=== PATIENT | female | born 1970 | race Caucasian/White ===

== ENCOUNTER → 2016-10-21 08:04 | Day surgery (SDC) | payer OTHER ==
--- NOTE | 2016-09-23 09:49 | HP ---
PREOPERATIVE HISTORY AND PHYSICAL: DATE OF SURGERY/ADMISSION: 10/21/16 PROCEDURE: Right wrist carpal tunnel release. CHIEF COMPLAINT: Right hand numbness and tingling. HISTORY OF PRESENT ILLNESS: This is a 46-year-old female who complains of numbness and tingling in her bilateral hands, worse on the right than on the left. She has had symptoms for a couple of years now but they have recently gotten worse. She has tried wrist bracing in the past with minimal improvement. She had a nerve conduction study EMG performed by Dr. Ricci, which showed moderate carpal tunnel syndrome on the right and ougc-[id number]-myaorpmf carpal tunnel syndrome on the left. The patient is interested in a more definitive resolution of her symptoms at this time and would like to proceed with a right carpal tunnel release. PAST MEDICAL HISTORY: 1. Migraine headaches. 2. GERD. PAST SURGICAL HISTORY: 1. x3. 2. Ectopic . 3. Right leg lower leg fracture. 4. Surgery for bilateral bunionectomy from her feet. 5. Tubal ligation. 6. Left foot Flores's neurectomy. MEDICATIONS: 1. Amitriptyline HCl. 2. Imitrex 50 mg. 3. Omeprazole 20 mg. 4. Trazodone HCl 100 mg q.h.s. 5. Zofran. ALLERGIES: No known drug allergies. FAMILY MEDICAL HISTORY: Noncontributory. SOCIAL HISTORY: The patient is employed at the [employer] in [place]. 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 She is a smoker. She smokes about a half pack a day and has done so for the past 15 to 20 years. She denies illicit drug use and denies alcohol use. REVIEW OF SYSTEMS: General: Negative for fevers, chills, or night sweats. No known anesthesia problems. HEENT: Positive for migraine headaches. Negative for lightheadedness or syncopal episodes. Integumentary: Negative for abrasions, lesions, or open wounds. Cardiothoracic: Negative for chest pain, palpitations, or edema. Negative for hypertension. Pulmonary: Negative for shortness of breath with exertion, chronic cough, COPD. GI: Positive for nausea associated with her migraine headaches. Negative for diarrhea or constipation. Positive for GERD. : Positive for history of UTIs. Negative for nocturia, urinary frequency, urgency or kidney problems. Musculoskeletal: Positive for current complaint. Negative for chronic or intermittent back pain. Neurological: Negative for paresthesias, numbness, history of seizure, stroke , or epilepsy. Endocrine: Negative for diabetes or thyroid issues. Hematologic : Negative for easy bruising, anemia, excessive bleeding or history of DVT. Infectious Disease: Negative for history of MRSA, hepatitis C, HIV. PHYSICAL EXAMINATION GENERAL: Well-developed, well-nourished 46-year-old female, in no acute distress. VITAL SIGNS: Height 5 feet 3 inches, weight 135 pounds. Blood pressure 100/78 , pulse rate 70. HEENT: Normocephalic, atraumatic. Pupils are equal, round, and reactive to light and accommodation. Extraocular movements are intact. NECK: Supple. No palpable lymph nodes. Throat is clear. PULMONARY: Lungs are clear to auscultation bilaterally. No wheezes, rales, or rhonchi. CARDIOTHORACIC: Regular rate and rhythm. S1, S2. No murmurs, rubs, or gallops. No edema. ABDOMEN: Positive bowel sounds. Soft, nontender. NEUROLOGIC: Alert and oriented x3. Cranial nerves II through XII are intact. MUSCULOSKELETAL: On exam of the right wrist, she has no thenar wasting. Mild weakness with thumb abduction. She has a positive Tinel sign over the median nerve at the wrist and a positive Phalen's test. She has good range of motion in her fingers and wrist. Sensation is intact to light touch. DIAGNOSTIC STUDIES/LAB DATA: EMG nerve conduction study test shows moderate entrapment of the median nerve at the right wrist. IMPRESSION: Right carpal tunnel syndrome. PLAN: The patient is scheduled to undergo right wrist carpal tunnel release with Dr. Lee on 10/21/16. She will return to the office 10 to 14 days postop for followup and suture removal. A prescription for Ultracet was e-scribed to the patient's pharmacy for postoperative pain management. RUDDY CROW [id number]/[facility] #: [id number] MTDBrandie
[~2016-10-21 08:04] MED LIST: Buffered Lidocaine 1% SYR 3ML* 3 ML/SYR SYRINGE INTRADERM ONE; Buffered Lidocaine 1% SYR 3ML* 3 ML/SYR SYRINGE ONE; DiMENhydriNATE IV* 50 MG/ML VIAL IV PUSH PRN; Famotidine IV* 10 MG/ML 2 ML (20 mg) IV ONE; Famotidine IV* 10 MG/ML 2 ML (20 mg) ONE; Ketorolac INJ* 30 MG/ML 1 ML VIAL ONE; Lidocaine 1% INJ* 10 MG/ML 30 ML SDV ONE; Lidocaine 2% PF * 5 ML VIAL ONE; Midazolam* 1 MG/ML 5 ML VIAL (5 MG) ONE; Ondansetron INJ* 2 MG/ML VIAL ONE; Propofol* 10 MG/ML 20 ML BTL IV PUSH ONE; fentaNYL* 50 MCG/ML 2 ML VIAL (100 MCG VIAL) ONE; oxyCODONE/Acetamin 5/325 MG* TAB PO PRN
[2016-10-21 09:52] VITALS: BP 126/82
--- NOTE | 2016-10-21 22:40 | OP ---
DATE OF OPERATION: 10/21/16 [facility] DATE OF : 66 SURGEON: Dr. Lee BAND NAILER: RUDDY Saba ANESTHESIOLOGIST: Ca Robles MD ANESTHESIA: Local MAC. PRE-OP DIAGNOSIS: Right carpal tunnel syndrome. POST-OP DIAGNOSIS: Right carpal tunnel syndrome. OPERATIVE PROCEDURE: Right carpal tunnel release. ESTIMATED BLOOD LOSS: Zero. TOURNIQUET TIME: 5 minutes. INDICATION FOR PROCEDURE: Carmen is 46-year-old female with numbness and tingling in the median nerve distribution of her right hand. She presents for right carpal tunnel release. DESCRIPTION OF PROCEDURE: The patient was brought to the operating room, was given a sedation anesthetic, and a local infiltration with 10 cc of 1% plain lidocaine in the palm of her right hand. The skin of her right hand and forearm was prepped and draped in the usual sterile fashion. The hand and forearm were exsanguinated and the tourniquet elevated to 250 mmHg. A longitudinal incision was made in the palm in line with the ring finger. We dissected through the subcutaneous tissue down to the transverse carpal ligament. The ligament was divided sharply with a knife and then more proximally with the scissors. The nerve was dissected free from the surrounding tissue, and there was an area of moderate compression at the mid portion of the ligament. The wound was copiously irrigated with saline and then the skin edges reapproximated with 4-0 nylon suture. The wound was dressed with Xeroform, 4x4, Webril, and an Hakeem wrap. The patient tolerated the procedure well and was brought to the recovery room in good condition. [id number]/[facility] #: [id number] MTDD
== END | disposition home or self-care (01) ==
LOC: OREAST 08:04
PROVIDERS: ATTEND Orthopaedic Surgery
DX: G56.01 Carpal tunnel syndrome, right upper limb (principal)
CPT/HCPCS: J1885; J2250; J2405; J2704; J3010

== ENCOUNTER 2017-09-28 08:01 | Day surgery (SDC) | payer OTHER ==
[~2017-09-28 08:01] MED LIST changes: +Buffered Lidocaine 0.9% SYRIN* 5 ML/SYR SYRINGE INTRADERM ONE; -Buffered Lidocaine 1% SYR 3ML* 3 ML/SYR SYRINGE INTRADERM ONE; -Buffered Lidocaine 1% SYR 3ML* 3 ML/SYR SYRINGE ONE; -DiMENhydriNATE IV* 50 MG/ML VIAL IV PUSH PRN; -Famotidine IV* 10 MG/ML 2 ML (20 mg) IV ONE; -Famotidine IV* 10 MG/ML 2 ML (20 mg) ONE; -Ketorolac INJ* 30 MG/ML 1 ML VIAL ONE; -Lidocaine 1% INJ* 10 MG/ML 30 ML SDV ONE; -Lidocaine 2% PF * 5 ML VIAL ONE; -Midazolam* 1 MG/ML 5 ML VIAL (5 MG) ONE; -Ondansetron INJ* 2 MG/ML VIAL ONE; -Propofol* 10 MG/ML 20 ML BTL IV PUSH ONE; -fentaNYL* 50 MCG/ML 2 ML VIAL (100 MCG VIAL) ONE; -oxyCODONE/Acetamin 5/325 MG* TAB PO PRN
[2017-09-28] MEDS ORDERED: Midazolam* 1 MG/ML 2 ML VIAL (2 MG) ONE (08:58)
[2017-09-28] MEDS ORDERED: fentaNYL* 50 MCG/ML 2 ML VIAL (100 MCG VIAL) ONE (08:58)
[2017-09-28] MEDS ORDERED: Propofol* 10 MG/ML 20 ML BTL IV PUSH ONE (09:08)
[2017-09-28] MEDS ORDERED: Bupivacaine 0.25% SDV* 30 ML ONE (09:16)
[2017-09-28] MEDS ORDERED: Betamethasone INJ* 6 MG/ML 5 ML VIAL (30 MG) ONE (09:21)
[2017-09-28] MEDS ORDERED: Lidocaine 1% MPF* 2 ML VIAL ONE (09:21)
[2017-09-28 10:31] VITALS: BP 116/73
--- NOTE | 2017-09-29 01:45 | OP ---
DATE OF OPERATION: 09/28/17 - [facility] DATE OF : 66 SURGEON: Christopher Sims MD STREETCAR DISPATCHER: RUDDY Guerrero ANESTHESIOLOGIST: Dr. Gonzales. ANESTHESIA: Local MAC. PRE-OP DIAGNOSES: 1. Right trigger thumb. 2. Right thumb carpometacarpal degenerative joint disease. POST-OP DIAGNOSES: 1. Right trigger thumb. 2. Right thumb carpometacarpal degenerative joint disease. OPERATIVE PROCEDURE: 1. Right trigger thumb A1 dolly release. 2. Right thumb carpometacarpal joint steroid injection. INDICATIONS: Carmen has had the aforementioned issues. We tried nonoperative treatments. Carmen was keep coming back. We talked about her options. She wanted to proceed with the trigger thumb release and the steroid shot. ESTIMATED BLOOD LOSS: 2 mL. COMPLICATIONS: None. FINDINGS: As expected. DESCRIPTION OF PROCEDURE: Carmen was seen in the preoperative holding area. The correct side, site, and procedure were identified. We came back to the operating room. The arm was prepped and draped in the usual fashion. A time- out was performed. I began by giving her a steroid injection into the right thumb carpometacarpal joint. I injected 1 mL of 1% lidocaine and 6 mg of betamethasone into the joint. I then made a 1-cm incision in the right thumb metacarpophalangeal joint flexion crease transversely. Dissection was carried down bluntly. Full thickness flaps were raised off the flexor tendon sheath and the digital nerves were retracted with Ragnell retractors. With the tendon sheath directly visualized, I used the 15- blade to open the A1 dolly in line with the FPL tendon. I completed the release for the proximally and distally with the tenotomy scissors. Everything was looking good, so we irrigated out the wound. Skin was closed with 4-0 Monocryl suture. Wound was dressed with Xeroform, 4x4s , sterile Webril and an Hakeem wrap. Tourniquet was deflated. She was woken up and taken to the recovery room in stable condition. [id number]/[facility] #: [id number] MTDD
== END 2017-09-28 10:28 | disposition home or self-care (01) ==
LOC: OREAST 08:01
PROVIDERS: ATTEND Orthopaedic Surgery Hand Surgery
DX: M18.11 Unilateral primary osteoarthritis of first carpometacarpal joint, right hand (principal); M65.311 Trigger thumb, right thumb; M79.641 Pain in right hand; D64.9 Anemia, unspecified; K21.9 Gastro-esophageal reflux disease without esophagitis; F17.210 Nicotine dependence, cigarettes, uncomplicated
CPT/HCPCS: J0702; J2250; J2704; J3010

== ENCOUNTER 2018-02-20 09:12 | Emergency (ER) | payer OTHER ==
--- OUTSIDE RECORDS SUMMARY | 2018-02-20 10:11 | XMS REPORT ---
:1970 External Reference #:[id number] Author Organization [facility] Address [address] [address] Phone [phone] Care Team Providers Name Role Phone Melissa Molina MD Primary Care Physician Unavailable Payers Type Date Identification Numbers Payment Provider Subscriber Commercial Effective: Policy Number: [id number] Michael Gomez 2010 Group Number: [id number] [address] PayID: [id number] [place] [address] Problems Description No Information Family History Date Family Member(s) Problem(s) Comments General Cancer General Rheumatoid Arthritis Father Stroke Social History Type Date Description Comments Lives With ETOH Use Denies alcohol use Smoking Light tobacco smoker (10 or fewer cigarettes/day) Exercise Type/Frequency Does not exercise Allergies, Adverse Reactions, Alerts Date Description Reaction Status Severity Comments 07/31/2014 NKDA active Medications Medication Date Status Form Strength Qnty SIG Indications Ordering Provider Omeprazole 00// Active 20mg Unknown 0000 Imitrex 00/ Active 50mg Unknown 0000 Zofran / Active Unknown 0000 Loratadine 00/ Active Tablets 10mg Kurter, 0000 MD Karl Metformin HCL // Active Tablets 500mg Karn, ER 0000 ER 24HR RUDDY James Pantoprazole / Active Tablets 40mg Syam, Sodium 0000 DR Danna MD Sumatriptan / Active Tablets 100mg Karn, Succinate 0000 RUDDY James Ondansetron HCL / Active Tablets 8mg Take One Unknown 0000 Tablet By Mouth Three Times A Day as Needed Naproxen / Active Tablets 500mg Take One Unknown 0000 Tablet By Mouth Twice A Day as Needed Tramadol 09/28/ Hx Tablets 37.5-325mg 30tabs 1-2 tab Christopher Crowder/Les 2018 - by mouth MD Bethany cetaminophen 02/01/ every 4-6 2017 hours as needed Naproxen 12/14/ Hx Tablets 500mg 60tabs 1 by G56.01 Farrah Lee M.D. 03/28/ twice a 2016 day Tramadol 11/23/ Hx Tablets 37.5-325mg 30tabs 1 tab by Farrah Crowder/A 2016 - audie Lee M.D. cetaminophen 03/28/ every 8 2016 hours as needed for pain Hydrocodone-Hakeem 10/24/ Hx Tablets 5-325mg 20tabs 1 tab by Farrah taminophen Kita Lee M.D. - 2016 6 hours as needed pain Ultracet 09/21/ Hx Tablets 37.5-325mg 20tabs 1 tab by Farrah Lee M.D. 03/28/ every 6 2016 hours as needed pain Amitriptyline / Hx Unknown HCL 0000 - 2017 Trazodone HCL / Hx Tablets 100mg 1 by Unknown 0000 - mouth 2017 night at bedtime Medications Administered in Office Medication Date Status Form Strength Qnty SIG Indications Ordering Provider Depomedrol Administered Injection Tita 40MG ADEEL Powesr Vital Signs Date Vital Result Comment 02/02/2018 Height 63 inches 5'3" Weight 145.00 lb BP Systolic 122 mmHg BP Diastolic 71 mmHg Respiratory Rate 16 /min Pain Level 10 BMI (Body Mass Index) 25.7 kg/m2 10/10/2017 Height 63 inches 5'3" Weight 143.00 lb Heart Rate 76 /min Respiratory Rate 14 /min Body Temperature 99.0 F Pain Level 5 BMI (Body Mass Index) 25.3 kg/m2 09/20/2017 Height 63 inches 5'3" Weight 143.00 lb Heart Rate 55 /min BP Systolic 138 mmHg BP Diastolic 68 mmHg Respiratory Rate 18 /min Body Temperature 98.4 F Pain Level 6 BMI (Body Mass Index) 25.3 kg/m2 08/25/2017 Height 62 inches 5'2" Weight 138.00 lb Heart Rate 74 /min BP Systolic Sitting 134 mmHg BP Diastolic Sitting 96 mmHg Body Temperature 99.0 F Pain Level 6 BMI (Body Mass Index) 25.2 kg/m2 03/29/2017 Height 63 inches 5'3" Weight 140.00 lb Heart Rate 81 /min BP Systolic 113 mmHg BP Diastolic 62 mmHg Body Temperature 98.5 F BMI (Body Mass Index) 24.8 kg/m2 12/14/2016 Height 63 inches 5'3" Weight 135.00 lb Heart Rate 64 /min BP Systolic 126 mmHg BP Diastolic 84 mmHg Respiratory Rate 16 /min Pain Level 6 BMI (Body Mass Index) 23.9 kg/m2 11/23/2016 Height 63 inches 5'3" Weight 135.00 lb Heart Rate 91 /min BP Systolic 130 mmHg BP Diastolic 70 mmHg BMI (Body Mass Index) 23.9 kg/m2 11/02/2016 Height 63 inches 5'3" Weight 135.00 lb Heart Rate 60 /min Respiratory Rate 16 /min Body Temperature 98.6 F Pain Level 5 BMI (Body Mass Index) 23.9 kg/m2 09/21/2016 Height 63 inches 5'3" Weight 135.00 lb BP Systolic Sitting 100 mmHg BP Diastolic Sitting 78 mmHg Respiratory Rate 16 /min Pain Level 6 BMI (Body Mass Index) 23.9 kg/m2 08/06/2014 Height 63 inches 5'3" Weight 130.00 lb Heart Rate 70 /min BP Systolic Sitting 126 mmHg BP Diastolic Sitting 76 mmHg BMI (Body Mass Index) 23.0 kg/m2 07/31/2014 Height 63 inches 5'3" Weight 130.00 lb Heart Rate 70 /min BP Systolic 117 mmHg BP Diastolic 63 mmHg BMI (Body Mass Index) 23.0 kg/m2 Results Description No Information Procedures Date CPT Code Description Status 09/28/2017 48118 Trigger Finger Release Incision / Tendon Sheath Completed Incision 09/28/2017 90643 Trigger Finger Release Incision / Tendon Sheath Completed Incision 09/28/201738186 Inject/Drain Joint/Bursa Small Completed 09/28/2017 27283 Inject/Drain Joint/Bursa Small Completed 03/29/2017 89628 Inject Tendon Sheath Or Ligament Aponeurosis Eg Plantar Completed Fascia 10/21/2016 84459 Carpal Tunnel Release Completed 10/21/2016 75363 Carpal Tunnel Release Completed 06/14/2016 52819 Nerve Conduction -08 Studies Completed 07/31/2014 35579 FX Distal Finger/Thumb Care Completed 07/31/2014 44446 Closed TX Phalanx finger/thumb shaft w/o manipulation Completed Encounters Type Date Location Provider CPT E/M Dx Office Visit 08/25/2017 [facility] [place] [address] M18.11 9:30a [facility] M65.311 Office Visit 03/29/2017 10:00a [facility] Tita Duoglass, [address]4065 M65.311 Of [facility] JOSEPH-C Office Visit 09/21/2016 1:00p [facility] Farrah Lee, 48256 G56.01 Of [facility] Lynch G56.02 G56.03 Office Visit 12/26/2011 10:00a [facility] Evangelist Ibarra, [address] 721.3 Of Sarah Lynch Plan of Care 10/10/2017 - Christopher Sims, MDM65.311 Trigger thumb, right thumbFollow up: Follow up: As [id number] 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
--- NOTE | 2018-02-20 10:25 | UC ---
General HPI - HPI Summary HPI Summary: Patient states that she developed allergy symptoms several days ago. She's been on allergy medication all along. About a week ago she followed up with her primary care provider due to her ongoing cough she states they changed her allergy medication. She had no prove improvement thus she followed up again on Monday and he placed her on a Z-Dionte, prednisone and pro-air. Today is her last dose of the Z-Dionte and prednisone. Again, it really didn't seem to help so she called them yesterday and they added Tessalon Perles. She presents today for ongoing signs and symptoms plus she now has sore throat and notes some spots in her throat. She admits to some shortness of breath and wheezing she denies fever now (but maybe at onset) chills and chest pain. She denies any history of asthma or COPD. She does ;however, have a several year history of smoking. - History of Current Complaint Stated Complaint: COUGH,ST,UPPER RESPITORY Time Seen by Provider: 02/20/18 10:13 Hx Obtained From: Patient Hx Last Menstrual Period: 06/24/14 Onset/Duration: Gradual Onset Timing: Constant Aggravating: nothing Alleviating: nothing Associated Signs & Symptoms: Positive: Cough, SOB, Wheezing. Negative: Chest Pain, Fever - Allergy/Home Medications Allergies/Adverse Reactions: Allergies Allergy/AdvReac Type Severity Reaction Status Date / Time bee venom protein (honey bee) Allergy Severe SWELLING Verified 02/20/18 10:12 OF FACE, LIPS AND THROAT Seasonal Allergies Allergy Congestion Uncoded 02/20/18 10:12 Home Medications: Home Medications Albuterol HFA INHALER* [Ventolin HFA Inhaler*] 2 puff INH Q4H PRN 02/20/18 [ History Confirmed 02/20/18] Azithromycin TAB* [Zithromax TAB (Z-DIONTE) 250 mg #6 tabs] 250 mg PO DAILY [History Confirmed 02/20/18] Benzonatate CAP* [Tessalon 100 MG CAP*] 100 mg PO TID PRN 02/20/18 [History Confirmed 02/20/18] Fluticasone NASAL SPRAY 50MCG* [Flonase NASAL SPRAY 50MCG*] 2 spray BOTH NARES DAILY 02/20/18 [History Confirmed 02/20/18] LevoCETirizine TAB (NF) [Xyzal TAB (NF)] 5 mg PO DAILY 02/20/18 [History Confirmed 02/20/18] Metoclopramide TAB* [Reglan TAB*] 10 mg PO Q6H PRN 02/20/18 [History Confirmed 02/20/18] metFORMIN* [Glucophage 500 MG TAB *] 500 mg PO BID 02/20/18 [History Confirmed 02/20/18] PMH/Surg Hx/FS Hx/Imm Hx Endocrine History: Diabetes - PRE GI/ History: Gastroesophageal Reflux Neurological History: Migraine Psychological History: Depression - Surgical History Surgical History: Yes Surgery Procedure, Year, and Place: TUBAL 2007 [place]. Carpal Tunnel right hand 2016 [facility]. Bunions removed 1983. Open compound fx 1997. Left oophrectomy ectopic 1993. x3 - Family History Known Family History: Negative: Cardiac Disease, Hypertension, Diabetes - Social History Occupation: Employed Full-time Lives: With Family Alcohol Use: Rare Substance Use Type: None Smoking Status (MU): Heavy Every Day Tobacco Smoker Type: Cigarettes Amount Used/How Often: 1/2 pack day Length of Time of Smoking/Using Tobacco: 20 + years Have You Smoked in the Last Year: Yes Household Exposure Type: Cigarettes - Immunization History Most Recent Tetanus Shot: approx 5 years ago? Review of Systems Constitutional: Fatigue Skin: Negative Eyes: Negative ENT: Negative Respiratory: Shortness Of Breath, Cough Cardiovascular: Negative Gastrointestinal: Negative Genitourinary: Negative Motor: Negative Neurovascular: Negative Musculoskeletal: Negative Neurological: Negative Psychological: Negative Is Patient Immunocompromised?: No All Other Systems Reviewed And Are Negative: Yes Physical Exam Triage Information Reviewed: Yes Appearance: Well-Appearing Vital Signs Reviewed: Yes Eyes: Positive: Conjunctiva Clear ENT: Positive: Pharyngeal erythema - with soft palate/uvular ulcers, TMs normal , Uvula midline. Negative: Tonsillar swelling, Tonsillar exudate, Trismus, Muffled voice, Hoarse voice Neck: Positive: Supple, Nontender, No Lymphadenopathy Respiratory: Positive: No respiratory distress, Decreased breath sounds, Other: - scattered rhonchi and wheezes with a congested cough Cardiovascular: Positive: RRR, No Murmur Abdomen Description: Positive: Nontender, No Organomegaly, Soft. Negative: Distended, Guarding Bowel Sounds: Positive: Present Musculoskeletal: Positive: ROM Intact Neurological: Positive: Alert Psychological: Positive: Age Appropriate Behavior Skin Exam: Normal Diagnostics - Laboratory Diagnostic Studies Completed/Ordered: Rapid strep=neg - Radiology No standard instances Xray Interpretation: No Acute Changes Radiology Interpretation Completed By: Radiologist - CXR Course/Dx - Course Course Of Treatment: rapid strep=neg. pt may have an element of COPD given her long smoking hx. cxr=nad. No fever or infiltrate to suggest a bacterial infection and pt on last day of zpak thus will avoid additonal antibiotics. also , vesicles in throat with neg rapid strep supports a viral illness. pt encouraged to seek help with quitting smoking. d/w Dr Hardy, pt to continue her proair. Will repeat short dose od steroid, benefit out weighs risk of transient elevation in her BS. - Differential Dx - Multi-Symptom Provider Diagnoses: bronchospasm, viral pharyngitis, bronchitis Discharge - Sign-Out/Discharge Documenting (check all that apply): Discharge/Admit/Transfer - Discharge Plan Condition: Stable Disposition: HOME Prescriptions: predniSONE TAB* [Deltasone 20 MG TAB*] 40 mg PO DAILY 5 Days #10 tab Patient Education Materials: Acute Bronchitis (ED), Bronchospasm (ED), How to Stop Smoking (ED) Referrals: Jose Gonsalez MD [Primary Care Provider] - Additional Instructions: CONTINUE THE PROAIR 2 PUFFS EVERY 4-6 HOURS. - Billing Disposition and Condition Condition: STABLE Disposition: Home
[2018-02-20 10:31] VITALS: BP 130/71
[2018-02-20] MEDS ORDERED: Albuterol/Ipratropium NEB.SOL* Albuterol 2.5 MG/Ipratropium 0.5 MG 3 ML INH ONE (10:44)
--- NOTE | 2018-02-20 11:00 | RAD ---
INDICATION: Cough, shortness of breath and wheezing. COMPARISON: There are no prior studies available for comparison. TECHNIQUE: Dual-energy PA and lateral views of the chest were obtained. FINDINGS: The heart is within normal limits in size. Mediastinal and hilar contours appear within normal limits. The lungs are clear. No pleural effusion is present. IMPRESSION: NO EVIDENCE FOR ACTIVE CARDIOPULMONARY DISEASE.
== END 2018-02-20 11:29 | disposition home or self-care (01) ==
LOC: UCCORT 09:12
DX: J98.01 Acute bronchospasm (principal); J02.8 Acute pharyngitis due to other specified organisms; J40 Bronchitis, not specified as acute or chronic; F17.210 Nicotine dependence, cigarettes, uncomplicated; K21.9 Gastro-esophageal reflux disease without esophagitis
CPT/HCPCS: 71046; 87651; 99212; A9270-GY; G0463

== ENCOUNTER 2018-08-02 08:47 | Day surgery (SDC) | payer OTHER ==
[~2018-08-02 08:47] MED LIST changes: +Acetaminophen TAB* 325 MG PO ONE; +Acetaminophen TAB* 325 MG PO PRN; +Betamethasone INJ* 6 MG/ML 5 ML VIAL (30 MG) ONE; +Bupivacaine 0.25% SDV* 30 ML ONE; +DiMENhydriNATE IV* 50 MG/ML VIAL IV PUSH PRN; +Gabapentin CAP(*) 300 MG PO ONE; +HYDROcodone/ACETAMIN 5-325 MG* 1 TAB PO PRN; +Levalbuterol 0.63MG/3ML NEB* UNIT OF USE INH PRN; +Lidocaine 1% MPF* 2 ML VIAL ONE; +Naloxone* 0.4 MG/ML 1 ML VIAL IV PRN; +Ondansetron INJ* 2 MG/ML VIAL IV PRN; +PROCHLORPERAZINE INJ 5 MG/ML 2 ML VIAL IV PRN; +diPHENhydraMINE IV* 50 MG/ML 1 ml VIAL (BENADRYL) IV PRN
[2018-08-02] MEDS ORDERED: Gabapentin CAP(*) 300 MG ONE (08:55)
[2018-08-02] MEDS ORDERED: Acetaminophen TAB* 325 MG ONE (08:55)
[2018-08-02] MEDS ORDERED: ceFAZolin 2 GM PREMIX in ORs 2 GM/50 ML BAG IVPB ONE (08:57)
[2018-08-02] MEDS ORDERED: fentaNYL* 50 MCG/ML 2 ML VIAL (100 MCG VIAL) ONE ×2 (09:39→12:11)
[2018-08-02] MEDS ORDERED: Propofol* 10 MG/ML 20 ML BTL IV PUSH ONE (09:39)
[2018-08-02] MEDS ORDERED: Midazolam* 1 MG/ML 2 ML VIAL (2 MG) ONE (09:39)
[2018-08-02] MEDS ORDERED: Lidocaine 2% PF * 5 ML VIAL ONE (09:39)
[2018-08-02] MEDS ORDERED: Bupivacaine 0.25% SDV PF* 10 ML VIAL INJ ONE (10:15)
[2018-08-02] MEDS ORDERED: Rocuronium* 10 MG/ML VIAL ONE (10:16)
[2018-08-02] MEDS ORDERED: EPHEDrine (Pressors)* 50 MG/ML VIAL ONE (10:46)
[2018-08-02] MEDS ORDERED: Naloxone* 0.4 MG/ML 1 ML VIAL IV PRN (11:37)
[2018-08-02] MEDS ORDERED: fentaNYL* 50 MCG/ML 2 ML VIAL (100 MCG VIAL) IV PRN (11:37)
[2018-08-02] MEDS ORDERED: oxyCODONE/Acetamin 5/325 MG* TAB PO PRN (11:37)
[2018-08-02] MEDS ORDERED: Dexamethasone IV* 4 MG/ML 1 ML (4 MG) ONE (11:38)
[2018-08-02] MEDS ORDERED: Ondansetron INJ* 2 MG/ML VIAL ONE (11:38)
[2018-08-02] MEDS ORDERED: Neostigmine Methylsulfate* 1 MG/ML 10 ML VIAL (1 mg/ml) ONE (11:39)
[2018-08-02] MEDS ORDERED: Ketorolac INJ* 30 MG/ML 1 ML VIAL ONE (11:39)
[2018-08-02] MEDS ORDERED: Glycopyrrolate IV* 0.2 MG/ML 1 ML VIAL ONE (11:39)
[2018-08-02] MEDS ORDERED: DiMENhydriNATE IV* 50 MG/ML VIAL IV PUSH PRN (11:43)
[2018-08-02] MEDS: fentaNYL* 50 MCG/ML 2 ML VIAL (100 MCG VIAL) IV PRN ×2 (12:22→12:33)
[2018-08-02] MEDS ORDERED: HYDROcodone/ACETAMIN 5-325 MG* 1 TAB ONE (12:31)
[2018-08-02 13:29] VITALS: BP 126/61
--- NOTE | 2018-08-02 21:25 | OP ---
DATE OF OPERATION: 08/02/18 - [facility] DATE OF : 66 SURGEON: hCristopher Sims MD AUDIO VISUAL MANAGER: RUDDY Guerrero. An accounts payable assistant was needed for the entirety of the procedure to aid in positioning of the arm and retraction. ANESTHESIOLOGIST: Dr. Barajas. ANESTHESIA: General. PRE-OP DIAGNOSES: 1. Right stage 3 basal joint arthritis. 2. Left basal joint arthritis. POST-OP DIAGNOSES: 1. Right stage 3 basal joint arthritis. 2. Left basal joint arthritis. OPERATIVE PROCEDURE: 1. Right thumb carpometacarpal arthroplasty. 2. Right distally based split flexor carpi radialis tendon transfer for thumb suspension and tendon interposition. 3. Left thumb carpometacarpal joint steroid injection. INDICATIONS: Carmen has bilateral basal joint arthritis. It has been progressive. She is really having to modify the way she does her activities. We had talked about risks and benefits. She had wanted to proceed with the aforementioned surgery. FINDINGS: See above and below. ESTIMATED BLOOD LOSS: 2 mL. COMPLICATIONS: None. DESCRIPTION OF PROCEDURE: Carmen was seen in the preoperative holding area. The correct side, site and procedure were identified. We came back to the operating room where we had a time-out and then I injected the left thumb carpometacarpal joint with 2 mL of 1% lidocaine and 12 mg of betamethasone. This went well without complications. A Band-Aid was applied. The patient was positioned supine with the use of the hand table. The arm was prepped and draped in the usual fashion. A time-out was performed. I began by making a 2 cm longitudinal incision over the dorsal radial thumb base and CMC joint area. Dissection was carried down longitudinally to preserve the traversing sensory nerves. The radial artery was dissected and mobilized. It was retracted out of the way. I then made a longitudinal incision and raised subperiosteal and capsular flaps to expose the trapezium in its entirety. The trapezium was then excised in a piecemeal fashion until it was excised in its entirety. I then confirmed that there was no significant scaphotrapezoid arthritis by pulling longitudinal traction on the second ray and directly inspecting the joint. Once everything was nice and clean, I raised my soft tissue off of the dorsum of the thumb base. Sequentially larger drill bits were used to create a bone tunnel from the proximal metacarpal thumb base exiting out the volar ulnar articular surface of the metacarpal base. Everything was irrigated out and we turned our attention to the tendon transfer. I then made a 1 cm longitudinal incision over the distal FCR tendon just proximal to the wrist flexion crease. The tendon sheath was opened. The tendon was brought up out of the wound with the right angle. It was split in its midline and a 26-gauge wire was passed into the tendon split. I then came 7 or 8 cm proximal to that first incision and made a second 1 cm transverse incision. The tendon sheath was released along the course of the FCR tendon. I then made a third 1 cm transverse incision proximal to the last incision and completed the release of the tendon sheath. A Maggy clamp was then used to pull the 26-gauge wire under the skin and split the tendon releasing half the tendon at the musculotendinous junction. The muscular remnants were excised off of the tendon and the free end of the tendon was secured to prevent fraying with 3-0 Ethibond suture. I then used two 26-gauge wires to shuttle half the tendon down into the thumb base wound. The tendon split was completed all the way to the base of the metacarpal. The 26-gauge wire was used to shuttle the tendon through the bone tunnel in the metacarpal base and then back around the intact limb of the FCR tendon. Appropriate tension was then set as the tendon transfer was secured with 3 figure- of-eight 3-0 Ethibond sutures. The first suture sewed all 3 limbs of the tendon transfer together. The last 2 sewed intact limb to intact limb. The remainder of the tendon was rolled up and secured with a 3-0 Ethibond suture. It was then placed in a neutral position between the base of the metacarpal and the distal pole of the scaphoid. I then closed the capsular and periosteal flaps over the tendon interposition. The wounds were irrigated out. The skin was closed with 4-0 nylon suture. 0.25 % plain Marcaine was infiltrated all around the thumb base and the tendon transfer. Dressings were applied and a thumb spica splint with the IP joint free was applied. Tourniquet was deflated. The hand pinked up immediately. She was taken to the recovery room in stable condition. [id number]/[facility] #: [id number] [facility] HOSPITALBrandie
== END 2018-08-02 13:40 | disposition home or self-care (01) ==
LOC: OREAST 08:47
PROVIDERS: ATTEND Orthopaedic Surgery Hand Surgery
DX: M18.12 Unilateral primary osteoarthritis of first carpometacarpal joint, left hand (principal); M18.11 Unilateral primary osteoarthritis of first carpometacarpal joint, right hand; K21.9 Gastro-esophageal reflux disease without esophagitis; Z72.0 Tobacco use; E11.9 Type 2 diabetes mellitus without complications; J45.909 Unspecified asthma, uncomplicated; M19.90 Unspecified osteoarthritis, unspecified site; D64.9 Anemia, unspecified
CPT/HCPCS: 88304; 88311; A9270-GY; J0690; J0702; J1100; J1885; J2250; J2405; J2704; J2710; J3010; J3490

== ENCOUNTER 2019-03-14 09:15 | Day surgery (SDC) | payer OTHER ==
[~2019-03-14 09:15] MED LIST changes: -Acetaminophen TAB* 325 MG PO ONE; -Acetaminophen TAB* 325 MG PO PRN; -Betamethasone INJ* 6 MG/ML 5 ML VIAL (30 MG) ONE; -Buffered Lidocaine 0.9% SYRIN* 5 ML/SYR SYRINGE INTRADERM ONE; +Buffered Lidocaine 1% SYRIN* 1 ML/SYRINGE INTRADERM ONE; -Bupivacaine 0.25% SDV* 30 ML ONE; -DiMENhydriNATE IV* 50 MG/ML VIAL IV PUSH PRN; -Gabapentin CAP(*) 300 MG PO ONE; -HYDROcodone/ACETAMIN 5-325 MG* 1 TAB PO PRN; +Lactated Ringers 1000 ML Bag* 1,000 ML IV SCH; -Levalbuterol 0.63MG/3ML NEB* UNIT OF USE INH PRN; -Lidocaine 1% MPF* 2 ML VIAL ONE; -Naloxone* 0.4 MG/ML 1 ML VIAL IV PRN; -Ondansetron INJ* 2 MG/ML VIAL IV PRN; -PROCHLORPERAZINE INJ 5 MG/ML 2 ML VIAL IV PRN; -diPHENhydraMINE IV* 50 MG/ML 1 ml VIAL (BENADRYL) IV PRN
[2019-03-14] MEDS ORDERED: Lidocaine 1% MPF* 2 ML VIAL ONE (09:24)
[2019-03-14] MEDS ORDERED: Betamethasone INJ* 6 MG/ML 5 ML VIAL (30 MG) ONE (09:25)
[2019-03-14] MEDS ORDERED: Bupivacaine 0.25% SDV PF* 10 ML VIAL INJ ONE (09:25)
[2019-03-14] MEDS ORDERED: Ondansetron INJ* 2 MG/ML VIAL IV PRN (09:37)
[2019-03-14] MEDS ORDERED: Naloxone* 0.4 MG/ML 1 ML VIAL IV PRN (09:37)
[2019-03-14] MEDS ORDERED: fentaNYL* 50 MCG/ML 2 ML VIAL (100 MCG VIAL) IV PRN (09:37)
[2019-03-14] MEDS ORDERED: fentaNYL* 50 MCG/ML 2 ML VIAL (100 MCG VIAL) ONE (09:47)
[2019-03-14] MEDS ORDERED: Lidocaine 2% PF * 5 ML VIAL ONE (09:49)
[2019-03-14] MEDS ORDERED: Propofol* 10 MG/ML 20 ML BTL ONE (09:49)
[2019-03-14] MEDS ORDERED: Ondansetron INJ* 2 MG/ML VIAL ONE (11:13)
[2019-03-14 11:35] VITALS: BP 122/68
--- NOTE | 2019-03-14 11:45 | OP ---
DATE OF OPERATION: 03/14/19 - [facility] DATE OF : 66 SURGEON: Christopher Sims MD BUYING INTERN: RUDDY Guerrero ANESTHESIOLOGIST: Dr. Peterson. ANESTHESIA: General. PRE-OP DIAGNOSES: 1. Left carpal tunnel syndrome. 2. Left thumb carpometacarpal degenerative joint disease. POST-OP DIAGNOSES: 1. Left carpal tunnel syndrome. 2. Left thumb carpometacarpal degenerative joint disease. OPERATIVE PROCEDURE: 1. Left endoscopic carpal tunnel release. 2. Left thumb carpometacarpal joint steroid injection. INDICATIONS: Carmen has the aforementioned conditions. We talked about the risks. She wants to proceed with surgery. ESTIMATED BLOOD LOSS: 2 mL. COMPLICATIONS: None. FINDINGS: See above and below. DESCRIPTION OF PROCEDURE: Carmen was seen in the preoperative holding area, the correct site, side, and procedure were identified. We came back to the operating room where the arm was prepped and draped in the usual fashion and a time-out was performed. The arm was exsanguinated with the Esmarch and the tourniquet was inflated to 250 mmHg. I made a 1 cm incision just ulnar to the palmaris longus tendon. Dissection was carried down. The distal antebrachial fascia was split transversely with the tenotomy scissors bluntly. I placed a 2-prong skin hook underneath the distal antebrachial fascia, a synovial stripper followed by the dilators and a Q-tip was introduced into the carpal tunnel to dilate it and dry it out. I then placed a MicroAire endoscopic carpal tunnel system. Once it was in the appropriate location, I pulled the trigger to elevate the blade. The ligament was then released from distal to proximal, taking great care to preserve the nerve and tendons. Once I had completed the release, I placed a Kami retractor. I confirmed the entirety of the release, everything looked good. I released the distal antebrachial fascia proximally. The wound was irrigated out. Skin was closed with 4-0 Monocryl suture and Steri-Strips. A 0.25% plain Marcaine was infiltrated. I used a 25-gauge needle to inject 2 mL 1% lidocaine and 12 mg of betamethasone into the left thumb carpometacarpal joint. A piece of gauze was applied here. At this point, the dressings were applied and she was taken to the recovery room in stable condition. [id number]/[facility] #: [id number] SHAYNA
== END 2019-03-14 11:36 | disposition home or self-care (01) ==
LOC: OREAST 09:15
PROVIDERS: ATTEND Orthopaedic Surgery Hand Surgery
DX: G56.02 Carpal tunnel syndrome, left upper limb (principal); M18.12 Unilateral primary osteoarthritis of first carpometacarpal joint, left hand; Z72.0 Tobacco use
CPT/HCPCS: J0702; J2405; J2704; J3010; J3490

== ENCOUNTER 2019-05-03 18:33 | Emergency (ER) | payer OTHER ==
[2019-05-03 19:37] VITALS: BP 109/73
--- NOTE | 2019-05-03 19:46 | UC ---
"General HPI - HPI Summary HPI Summary: Patient presents to urgent care for evaluation of right anterior chest wall pain. Patient states Andi 1 month ago she lifted something heavy and developed a strain to her right chest wall. Patient was seen by her primary care provider. Patient has been doing heat ice and stretching and has been improving patient states on Monday she tablets lose movement very large chest. Patient states her arms are very wide apart and she felt a pull reestablishing right anterior chest. Patient states she take ibuprofen 3 week with little improvement. Patient states today she was using both hands to try to pull open a metal napkin morfin when she felt sudden strain on her right anterior chest. No shortness of breath. No nausea vomiting. No lightheaded. Patient states pain is worse with movement of her arm. Patient states she does have right shoulder tendinitis but this feels different. Patient denies any direct trauma. No bruising. Patient does take meloxicam. Patient has multiple joint arthritis as and has had injections to her shoulders or hips as well as bilateral carpal tunnel. Patient is not currently working. Patient does not like narcotics. Patient's medications reviewed this visit. - History of Current Complaint Chief Complaint: UCGeneralIllness Stated Complaint: CHEST WALL PAIN Time Seen by Provider: 05/03/19 19:22 Hx Obtained From: Other: - Giovana Johnson | Reference #: [id number] istop Hx Last Menstrual Period: 06/24/14 Pain Intensity: 7 - Allergy/Home Medications Allergies/Adverse Reactions: Allergies Allergy/AdvReac Type Severity Reaction Status Date / Time bee venom protein (honey bee) Allergy Severe SWELLING Verified 05/03/19 19:37 OF FACE, LIPS AND THROAT Seasonal Allergies Allergy Congestion Uncoded 05/03/19 19:37 PMH/Surg Hx/FS Hx/Imm Hx Previously Healthy: No - multiple joint arthritis, tendinitis - Surgical History Surgical History: Yes Surgery Procedure, Year, and Place: TUBAL 2007 [facility]. Carpal Tunnel right hand 2016 [facility], left side 2019. Bunions removed 1983. Open compound fx 1997. Left oophrectomy ectopic 1993. x3. trigger finger/right thumb. bone removed right hand 2018 - Family History Known Family History: Positive: Non-Contributory Negative: Cardiac Disease, Hypertension, Diabetes - Social History Occupation: Disabled Lives: With Family Alcohol Use: Rare Alcohol Amount: FEW TIMES/YR Substance Use Type: None Smoking Status (MU): Light Every Day Tobacco Smoker Type: Cigarettes Amount Used/How Often: 1/2 pack day Length of Time of Smoking/Using Tobacco: 20 + years Have You Smoked in the Last Year: Yes Household Exposure Type: Cigarettes - Immunization History Most Recent Tetanus Shot: approx 5 years ago? Review of Systems All Other Systems Reviewed And Are Negative: Yes Skin: Positive: Negative Motor: Positive: Other - right anterior chest wall Physical Exam - Summary Physical Exam Summary: Vital Signs Reviewed: Yes A+Ox3, no distress, easily changes position Eyes: Conjunctiva Clear, ENT: Hearing grossly normal Neck: Positive: Supple Respiratory: Positive: No respiratory distress, No accessory muscle use + CTA throughout no w/r Cardiovascular: RRR nl s1, s2 no m/r CBT <2 sec, + TTP right anterior upper pectoral area. No crepitus full AROM shoulder with baseline pain right anterior shoulder mild chest wall pain abd soft + BS nt/nd no guarding, no distension Musculoskeletal Exam: MARINA x 4 without difficulty Strength Intact, ROM Intact Neurological: Positive: Alert, + sensation throughout Psychological: Positive: Normal Response To clock smith Skin: Positive: no rash, no ecchymosis Triage Information Reviewed: Yes Vital Signs: Initial Vital Signs Temp 97.8 F 05/03/19 19:24 Pulse 93 05/03/19 19:24 Resp 16 05/03/19 19:24 BP 109/73 05/03/19 19:24 Pulse Ox 97 05/03/19 19:24 Course/Dx - Course Course Of Treatment: Patient presents to urgent care for evaluation of right anterior chest wall pain that happened after she lifted a heavy chest with her arms brought earlier this week and then today was pulling a piece of metal part. Patient states she had a similar strain approximately 3 weeks ago that had improved but not completely resolved. Patient denies shortness of breath but states she feels with deep breaths. On exam vital signs are stable. Patient with point tenderness reproducible right anterior chest wall pain superior to her right breast. We'll check chest x-ray to make sure there is no mass pneumothorax this patient is a smoker. If this is negative give patient a arm sling for rest of those upper chest shoulder muscles, patient has moist. Can take Tylenol product as well as tramadol. Precautions given. Istop and was checked. Patient comfortable plan will follow up with PCP - Diagnoses Provider Diagnosis: Anterior chest wall pain Discharge - Sign-Out/Discharge Documenting (check all that apply): Patient Departure All imaging exams completed and their final reports reviewed: No - Discharge Plan Condition: Stable Disposition: HOME Prescriptions: Tramadol HCl 50 mg PO Q8HR PRN #10 tablet MDD 3 PRN Reason: severe pain Patient Education Materials: Chest Wall Pain (ED) Referrals: Jose Gonsalez MD [Primary Care Provider] - Additional Instructions: -wear sling for comfort and support. relax your shoulder so the sling holds the weight of your shoulder - apply heat 2-3 times a day - once your muscles are warm, slow gentle stretching exercises are important --Okay to to take Tylenol every 6 hours for pain. Take Meloxicam as previously prescribed. It is okay to take Tramadol as prescribed. Do not drive, operate machinery or drink alcohol while taking Tramadol. Take with food. Do NOT take for more than 4-5 days. - Contact your doctor to schedule a follow-up appointment early next week. If you develop chest pain, shortness of breath, fever, or ANY Other concerns it is recommended you contact 911 - seek evaluation in the emergency department As discussed, your radiograph was reviewed by the provider that treated you tonight. It will be read by a radiologist tomorrow morning. If there is a finding other than that discussed with you today, you will receive a call from a care provider. - Billing Disposition and Condition Condition: STABLE Disposition: Home"
[2019-05-03] MEDS ORDERED: Acetaminophen TAB* 325 MG PO ONE (19:56)
--- NOTE | 2019-05-04 09:31 | UC ---
- Progress Note Progress Note: Patient Name: MARTY BAÑUELOS Medical Record#: [id number] Ordering Physician: Giovana Johnson MD Acct.#: [id number] : 1970 Age: 49 Sex: F Location: [facility] Exam Date: 05/03/191955 ADM Status: DEP ER Order Information: CHEST PA & LAT 2 VWS Accession Number: [id number] CPT: 45611 HISTORY: right anterior chest wall pain COMPARISONS: February 20, 2018 VIEWS: 4: Frontal dual-energy and lateral views of the chest. FINDINGS: CARDIOMEDIASTINAL SILHOUETTE: The cardiomediastinal silhouette is normal. EYAL: The eyal are normal. PLEURA: The costophrenic angles are sharp. No pleural abnormalities are noted. LUNG PARENCHYMA: The lungs are clear. ABDOMEN: The upper abdomen is clear. There is no subphrenic gas. BONES AND SOFT TISSUES: No bone or soft tissue abnormalities are noted. OTHER: None. IMPRESSION: NO ACTIVE CARDIOPULMONARY DISEASE. R0 Preliminary Imaging Read R0 <Electronically signed by Devaughn Rae MD in OV> 05/04/19 075 Dictated By: Devaughn Rae MD Dictated Date/Time: 05/04/19 0750 Transcribed Date/Time: 05/04/19 0749 Copy to: CC:Jose Gonsalez MD; Giovana Johnson MD Imaging - [facility] Imaging - [facility] [address] [address] ph ([phone]) ph ([phone]) ph ([phone]) This report is only to be considered final once signed by the Provider(s) as displayed in the "<Electronically Signed by >" field (s). Absence of a signature indicates the report is in a draft status and still needs to be finalized. In the event this document was created by someone other than the signing Provider, the individual initiating the document will be listed in the "Entered by:" or "Dictated by:" mendoza. 1 of 1 Course/Dx - Diagnoses Provider Diagnoses: Anterior chest wall pain Discharge - Sign-Out/Discharge Documenting (check all that apply): Post-Discharge Follow Up All imaging exams completed and their final reports reviewed: Yes - Discharge Plan Condition: Stable Disposition: HOME Prescriptions: Tramadol HCl 50 mg PO Q8HR PRN #10 tablet MDD 3 PRN Reason: severe pain Patient Education Materials: Chest Wall Pain (ED) Referrals: Jose Gonsalez MD [Primary Care Provider] - Additional Instructions: -wear sling for comfort and support. relax your shoulder so the sling holds the weight of your shoulder - apply heat 2-3 times a day - once your muscles are warm, slow gentle stretching exercises are important --Okay to to take Tylenol every 6 hours for pain. Take Meloxicam as previously prescribed. It is okay to take Tramadol as prescribed. Do not drive, operate machinery or drink alcohol while taking Tramadol. Take with food. Do NOT take for more than 4-5 days. - Contact your doctor to schedule a follow-up appointment early next week. If you develop chest pain, shortness of breath, fever, or ANY Other concerns it is recommended you contact 911 - seek evaluation in the emergency department As discussed, your radiograph was reviewed by the provider that treated you tonight. It will be read by a radiologist tomorrow morning. If there is a finding other than that discussed with you today, you will receive a call from a care provider. - Billing Disposition and Condition Condition: STABLE Disposition: Home
== END 2019-05-03 20:37 | disposition home or self-care (01) ==
LOC: UCCORT 18:33
DX: R07.89 Other chest pain (principal); Z91.030 Bee allergy status; J30.2 Other seasonal allergic rhinitis; F17.210 Nicotine dependence, cigarettes, uncomplicated
CPT/HCPCS: 71046; 99213; A9270-GY; G0463

== ENCOUNTER 2019-11-28 14:27 | Day surgery (SDC) | payer OTHER ==
[~2019-11-28 14:27] MED LIST changes: +Famotidine IV* 10 MG/ML 2 ML (20 mg) IV ONE
[2019-11-28] MEDS ORDERED: ceFAZolin 2 GM PREMIX in ORs 2 GM/50 ML BAG ONE (14:38)
[2019-11-28] MEDS ORDERED: Famotidine IV* 10 MG/ML 2 ML (20 mg) ONE (14:39)
[2019-11-28] MEDS ORDERED: Bupivacaine 0.25% SDV* 30 ML ONE (15:25)
[2019-11-28] MEDS ORDERED: Midazolam* 1 MG/ML 5 ML VIAL (5 MG) ONE (15:29)
[2019-11-28] MEDS ORDERED: Propofol* 10 MG/ML 20 ML BTL ONE (17:40)
[2019-11-28] MEDS ORDERED: Lidocaine 2% PF * 5 ML VIAL ONE (17:40)
[2019-11-28] MEDS ORDERED: fentaNYL* 50 MCG/ML 2 ML VIAL (100 MCG VIAL) ONE ×2 (17:40→19:27)
[2019-11-28] MEDS ORDERED: Ketorolac INJ* 30 MG/ML 1 ML VIAL ONE (17:57)
[2019-11-28] MEDS ORDERED: Dexamethasone IV* 4 MG/ML 1 ML (4 MG) ONE (18:09)
[2019-11-28] MEDS ORDERED: Ondansetron INJ* 2 MG/ML VIAL ONE (18:49)
[2019-11-28] MEDS ORDERED: DiMENhydriNATE IV* 50 MG/ML VIAL IV PUSH PRN (19:25)
[2019-11-28] MEDS ORDERED: PROCHLORPERAZINE INJ 5 MG/ML 2 ML VIAL IV PRN (19:25)
[2019-11-28] MEDS ORDERED: Naloxone* 0.4 MG/ML 1 ML VIAL IV PRN (19:25)
[2019-11-28] MEDS ORDERED: HYDROcodone/ACETAMIN 5-325 MG* 1 TAB PO PRN (19:25)
[2019-11-28] MEDS ORDERED: oxyCODONE/Acetamin 5/325 MG* TAB PO PRN (19:25)
[2019-11-28] MEDS ORDERED: HYDROcodone/ACETAMIN 5-325 MG* 1 TAB ONE (19:27)
[2019-11-28] MEDS: fentaNYL* 50 MCG/ML 2 ML VIAL (100 MCG VIAL) IV PRN ×2 (19:29→19:54)
[2019-11-28 20:38] VITALS: BP 124/63
--- NOTE | 2019-11-29 00:46 | OP ---
DATE OF OPERATION: 11/28/19 - [facility] DATE OF : 66 SURGEON: Christopher Sims MD. ETHYLBENZENE CRACKING SUPERVISOR: RUDDY Araujo. An graduate assistant was needed for the procedure to aid in positioning of the arm and retraction. ANESTHESIOLOGIST: Dr. Abdalla. ANESTHESIA: General. PRE-OP DIAGNOSIS: Left thumb stage III basal joint arthritis. POST-OP DIAGNOSES: Left thumb stage III basal joint arthritis. OPERATIVE PROCEDURE: 1. Left thumb carpometacarpal arthroplasty with trapeziectomy. 2. Left distally based split flexor carpi radialis tendon transfer for thumb suspension and tendon interposition. ESTIMATED BLOOD LOSS: 10 mL. COMPLICATIONS: None. FINDINGS: See above and below. DESCRIPTION OF PROCEDURE: Ms. Gomez was seen in the preoperative holding area. The correct site, side, and procedures were identified. We came back to the operating room. The arm was prepped and draped in the usual fashion and a time- out was performed. The arm was exsanguinated and the tourniquet was inflated. I made a 2 to 3 cm incision over the dorsal radial thumb base. Dissection was carried down longitudinally to preserve the traversing sensory nerves. The radial artery was mobilized out of the way. The radial artery was mobilized and protected. Subperiosteal dissection was used to raise full-thickness capsular flaps and the entirety of the soft tissue about the trapezium was released. I then used a rongeur to excise the trapezium in piecemeal fashion. Once it was completely excised, I used sequentially larger drill bits to make a bone tunnel from the dorsoradial metacarpal base exiting out of the volar ulnar articular surface near the insertion of the FCR tendon. The scaphotrapezoid joint was examined and looked good. I then turned my attention to the tendon transfer. I made three 1 cm incisions over the FCR tendon, the first about a cm proximal to the wrist flexion crease and the next two about 7 or 8 cm proximal to the left. The tendon sheath was opened distally and then released along the length of the tendon. The tendon was brought up about the wound distally using a right angle and then was split longitudinally and a wire was placed into the split. A Maggy clamp was then used to pull the wire under the skin up and out of the proximal wound releasing half the tendon at the musculotendinous junction. I sewed the free tail of the tendon at the end with a 3- 0 Ethibond suture to prevent splitting and fraying. I then used two 26-gauge wires to shuttle the free tail of the tendon down into the thumb base wound. The tendon split was taken all the way down to the base of the second metacarpal. I then took the free tail of the tendon through the bone tunnel, back around the intact limb and then maximum tension was set because I secured the tendon transfer with three [id number] 3-0 Ethibond sutures, the first showed all three limbs of the tendon transferred together, the last 2 sewed intact limb to intact limb. The remainder of the tendon tail was rolled up as a ball and secured with a 3-0 Ethibond suture and placed proximal to the base of the metacarpal. The wound was irrigated out and capsule was closed with 4-0 Vicryl suture. The skin was closed with 4-0 nylon suture. Marcaine 0.25% was infiltrated all about the operative area. The wounds were dressed with Xeroform, 4 x 4s and a sterile Webril and then a thumb spica splint with the IP joint free was applied. She was taken to the recovery room in stable condition. [id number]/[facility] #: [id number] SHAYNA
== END 2019-11-28 20:39 | disposition home or self-care (01) ==
LOC: OREAST 14:27
PROVIDERS: ATTEND Orthopaedic Surgery Hand Surgery
DX: M18.12 Unilateral primary osteoarthritis of first carpometacarpal joint, left hand (principal); J45.909 Unspecified asthma, uncomplicated; M79.645 Pain in left finger(s); E11.8 Type 2 diabetes mellitus with unspecified complications; F17.210 Nicotine dependence, cigarettes, uncomplicated; Z79.51 Long term (current) use of inhaled steroids; Z91.030 Bee allergy status
CPT/HCPCS: 88304; 88311; J0690; J1100; J1885; J2250; J2405; J2704; J3010; J3490

== ENCOUNTER 2021-12-24 10:37 | Observation (INO) ==
[~2021-12-24 10:37] MED LIST changes: +Acetaminophen IV 1 GM/100ML 0 ML IV ONE; +Buffered Lidocaine 1% SYRIN 1 ml INTRADERM ONE; -Buffered Lidocaine 1% SYRIN* 1 ML/SYRINGE INTRADERM ONE; +Bupivacaine 0.5% SDV PF 30ML VIAL ONE; +Famotidine IV 10 MG/ML 2 ml VIAL (20 mg) IV ONE; -Famotidine IV* 10 MG/ML 2 ML (20 mg) IV ONE; -Lactated Ringers 1000 ML Bag* 1,000 ML IV SCH; +Lactated Ringers 1000 ml BAG 1,000 ML IV SCH; +Lidocaine 2% PF 5 ML VIAL ONE; +Midazolam 2 mg/2 ml VIAL 1 mg/ml 2 ml VIAL (2 mg) ONE; +Phenylephrine IV 10 MG/ML 1 ml VIAL ONE; +Propofol 0 MG/0 ML BTL ONE; +Propofol 10 MG/ML 20 ML BTL ONE; +fentaNYL 100 mcg/2 ml 50 MCG/ML VIAL ONE
[2021-12-24] MEDS ORDERED: ceFAZolin 2 GM PREMIX 2 GM/50 ML BAG ONE (10:58)
[2021-12-24] MEDS ORDERED: Lidocaine 2% PF 5 ML VIAL ONE (11:57)
[2021-12-24] MEDS ORDERED: Dexamethasone IV 4 MG/ML VIAL 1 ml VIAL ONE (11:57)
[2021-12-24] MEDS ORDERED: Propofol 10 MG/ML 20 ML BTL ONE (11:57)
[2021-12-24] MEDS ORDERED: Ondansetron 4 mg VIAL 2 MG/ML 2 ml VIAL ONE (11:57)
[2021-12-24] MEDS ORDERED: Rocuronium 50 mg VIAL 10 mg/ml 5 ml VIAL (50 mg) ONE (11:58)
[2021-12-24] MEDS ORDERED: Midazolam 2 mg/2 ml VIAL 1 mg/ml 2 ml VIAL (2 mg) ONE (11:58)
[2021-12-24] MEDS ORDERED: fentaNYL 250 mcg/5 ml 50 MCG/ML 5 ml VIAL (250 MCG) ONE (11:58)
[2021-12-24] MEDS ORDERED: Acetaminophen IV 1 GM/100ML 100 ML IV ONE (12:29)
[2021-12-24] MEDS ORDERED: Levalbuterol HFA INHALER MDI ONE (13:58)
[2021-12-24] MEDS ORDERED: EPHEDrine (Pressors) 50 MG/ML VIAL ONE (14:07)
[2021-12-24] MEDS ORDERED: Phenylephrine IV 10 MG/ML 1 ml VIAL ONE (14:12)
[2021-12-24] MEDS ORDERED: Lactulose 30 ml UDC PO PRN (14:45)
[2021-12-24] MEDS ORDERED: diPHENhydraMINE IV 50 MG/ML 1 ml VIAL (BENADRYL) IV PRN (14:45)
[2021-12-24] MEDS ORDERED: diPHENhydraMINE 25 mg TAB PO PRN (14:45)
[2021-12-24] MEDS ORDERED: Ondansetron ODT 4 mg TAB 4 MG TAB PO PRN (14:45)
[2021-12-24] MEDS ORDERED: Ondansetron 4 mg VIAL 2 MG/ML 2 ml VIAL IV PRN ×2 (14:45→15:28)
[2021-12-24] MEDS ORDERED: Morphine 2 MG/ML SYRINGE IV PRN (14:45)
[2021-12-24] MEDS ORDERED: Magnesium Hydroxide LIQ 30 ML UDC PO PRN (14:45)
[2021-12-24] MEDS ORDERED: Albuterol HFA INHALER 8 gm MDI INH PRN (14:56)
[2021-12-24] MEDS ORDERED: ceFAZolin 1 GM ADVAN 1 GM in NS 0.9% 50 ML 50 ML IVPB SCH (15:00)
[2021-12-24] MEDS ORDERED: Naloxone 0.4 mg VIAL 0.4 mg/ml 1 ml VIAL IV PRN (15:28)
[2021-12-24] MEDS ORDERED: HYDROmorphone 1 MG/1 ML SYRINGE IV PRN (15:28)
[2021-12-24] MEDS ORDERED: DiMENhydriNATE IV 50 mg/ml 1 ml VIAL IV PUSH PRN (15:28)
[2021-12-24] MEDS: Lactated Ringers 1000 ml BAG 1,000 ML IV SCH (18:32)
[2021-12-24] MEDS: Magnesium Hydroxide LIQ 30 ML UDC PO SCH (20:57)
[2021-12-24] MEDS ORDERED: ceFAZolin VIAL 1 GM in NS 0.9% 50 ML 50 ML IVPB SCH (21:00)
[2021-12-25] MEDS: Lactated Ringers 1000 ml BAG 1,000 ML IV SCH (05:07)
[2021-12-25] MEDS: ceFAZolin 1 GM in Dextrose 1 GM/50 ML BAG IVPB SCH ×2 (05:07→12:59)
[2021-12-25 06:47] LABS: Hematocrit 33 % (35-47); Hemoglobin 10.5 g/dL (12.0-16.0); Mean Platelet Volume 7.2 fL (7.4-10.4); Platelet Count 405 10^3/uL (150-450)
[2021-12-25 07:00] LABS: Calcium 8.9 mg/dL (8.6-10.3); Potassium 4.4 mmol/L (3.5-5.0); eGFR CKD-EPI 105.6 (>60)
[2021-12-25] MEDS: Magnesium Hydroxide LIQ 30 ML UDC PO SCH (08:41)
[2021-12-25] MEDS ORDERED: Vitamin THERAPEUTIC TAB PO SCH (09:00)
[2021-12-25 15:53] VITALS: BP 122/61
== END 2021-12-25 17:25 | disposition home or self-care (01) ==
LOC: EDBD → OR 10:37 → SSU 10:37
PROVIDERS: ADMIT Orthopaedic Surgery Adult Reconstructive Orthopaedic Surgery; ATTEND Orthopaedic Surgery Adult Reconstructive Orthopaedic Surgery